=== PATIENT | male | born 1940 | race Caucasian/White ===

== ENCOUNTER 2019-02-18 08:43 | Day surgery (SDC) | payer MEDICARE, BC ==
[~2019-02-18] VITALS: Ht 175.3 cm; Wt 86.9 kg
[~2019-02-18 08:43] MED LIST: AMLO5 PO; Azopt10 ML; Azopt10 ML BOTHEYES; Bystolic20 MG PO; CARV25 PO; DABI150C PO; ENTRESTO 97 MG1 EACH PO; ESOM20 PO; GAVILAX17 GM PO; LOSA25 PO; LOVA20 PO; METO25ER PO; MONT10T PO; OMEG1CAP30; Ocuvite Lutein1 EACH PO; Ocuvite Softge1 EAC1 PO; PANT40 PO; PROTONIX; SENN187 PO; SPIR25 PO; TORSE20 PO
--- NOTE | 2019-02-18 10:49 | NUR ---
02/18/19 1048 Toshia Mccain RN NOTIFIED DR RYAN OF PT'S BP AT 1030. NO INTERVENTIONS ORDERED AT THIS TIME. FLUIDS ARE RUNNING, PT IS AWAKE AND DENIES NAUSEA AND PAIN. PT IS TOLERATING PO FLUIDS AND SNACKS WELL.
== END 2019-02-18 11:07 | disposition home or self-care (01) ==
LOC: ORSCSDS 08:43
PROVIDERS: Surgery
PROC: 0DBP8ZX Excision of Rectum, Via Natural or Artificial Opening Endoscopic, Diagnostic (ICD-10-PCS; principal; 2019-02-18 10:00)
DX: Z12.11 Encounter for screening for malignant neoplasm of colon (principal); Z86.010 Personal history of colon polyps; K62.1 Rectal polyp; G47.33 Obstructive sleep apnea (adult) (pediatric); I42.0 Dilated cardiomyopathy; I25.10 Atherosclerotic heart disease of native coronary artery without angina pectoris; I10 Essential (primary) hypertension; Z87.891 Personal history of nicotine dependence; Z79.899 Other long term (current) drug therapy
CPT/HCPCS: 88305; J2704; J7120

== ENCOUNTER → 2023-11-04 | Outpatient (CLI) | payer MEDICARE, BC ==
[~2023-11-04] MED LIST changes: +Amiodarone HCl200 MG PO; +XARELTO20 MG PO
[2023-11-04 11:52] LABS: Albumin, Blood 3.6 g/dL (3.4-5.0); Albumin/Globulin Ratio 0.7 (0.8-1.8); Bilirubin, Total 0.7 mg/dL (0.1-1.0); Bun/Creatinine Ratio 21.6 (12.0-20.0); Calcium, Blood 8.8 mg/dL (8.5-10.1); Creatinine, Blood 1.76 mg/dL (0.60-1.20); Globulin, Blood 5.2 g/dL (2.2-4.0); Potassium, Blood 4.6 mmol/L (3.5-5.5); Total Protein, Blood 8.8 g/dL (6.4-8.2)
[2023-11-04 11:53] LABS: BASOPHILS ABSOLUTE AUTO 0.01 K/mm3 (0.00-0.23); BASOPHILS PERCENT AUTO 0 % (0-2); EOSINOPHILS ABSOLUTE AUTO 0.01 K/mm3 (0.00-0.68); EOSINOPHILS PERCENT AUTO 0 % (0-6); Hemoglobin 17.6 g/dL (13.5-17.5); IMMATURE GRAN ABSOLUTE AUTO 0.03 K/mm3 (0.00-0.10); IMMATURE GRAN PERCENT AUTO 1 % (0-1); LYMPHOCYTES ABSOLUTE AUTO 0.71 K/mm3 (0.84-5.20); LYMPHOCYTES PERCENT AUTO 13 % (21-46); MONOCYTES ABSOLUTE AUTO 0.75 K/mm3 (0.16-1.47); MONOCYTES PERCENT AUTO 14 % (4-13); Mean Corpuscular HGB 31.5 pg (26.0-34.0); Mean Corpuscular HGB Conc 33.2 g/dL (31.5-36.5); Mean Corpuscular Volume 95 fL (80-100); NEUTROPHILS ABSOLUTE AUTO 3.82 K/mm3 (1.96-9.15); NEUTROPHILS PERCENT AUTO 72 % (41-73); RDW Coefficient Variation 13.5 % (11.7-14.2); RDW Standard Deviation 47.4 fL (35.1-46.3); Red Blood Cell Count 5.59 M/mm3 (4.30-5.90); White Blood Cell Count 5.33 K/mm3 (4.00-11.30)
[2023-11-04 12:05] LABS: Mean Platelet Volume 10.8 fL (9.1-12.4)
[2023-11-04 12:08] LABS: Platelet Count 133 K/mm3 (150-400)
== END ==
LOC: LAB 11:32 → LAB SHORT 11:32
PROVIDERS: Physician Assistant
DX: R31.9 Hematuria, unspecified (principal)
CPT/HCPCS: 80053; 85025; 87086

== ENCOUNTER 2023-11-08 03:37 | Inpatient (IN) | payer MEDICARE, BC ==
[~2023-11-08] VITALS: Ht 175.3 cm; Wt 82.6 kg
[2023-11-08] VITALS (11 sets, daily range): BP systolic 77–99; BP diastolic 53–79
[2023-11-08 04:12] LABS: BASOPHILS ABSOLUTE AUTO 0.02 K/mm3 (0.00-0.23); BASOPHILS PERCENT AUTO 0 % (0-2); EOSINOPHILS ABSOLUTE AUTO 0.18 K/mm3 (0.00-0.68); EOSINOPHILS PERCENT AUTO 3 % (0-6); Hematocrit 54.1 % (37.0-53.0); Hemoglobin 18.4 g/dL (13.5-17.5); IMMATURE GRAN ABSOLUTE AUTO 0.06 K/mm3 (0.00-0.10); IMMATURE GRAN PERCENT AUTO 1 % (0-1); LYMPHOCYTES ABSOLUTE AUTO 0.64 K/mm3 (0.84-5.20); LYMPHOCYTES PERCENT AUTO 11 % (21-46); MONOCYTES ABSOLUTE AUTO 0.79 K/mm3 (0.16-1.47); MONOCYTES PERCENT AUTO 13 % (4-13); Mean Corpuscular HGB 31.1 pg (26.0-34.0); Mean Corpuscular Volume 91 fL (80-100); Mean Platelet Volume 11.3 fL (9.1-12.4); NEUTROPHILS ABSOLUTE AUTO 4.37 K/mm3 (1.96-9.15); NEUTROPHILS PERCENT AUTO 72 % (41-73); Platelet Count 166 K/mm3 (150-400); RDW Coefficient Variation 13.5 % (11.7-14.2); RDW Standard Deviation 46.2 fL (35.1-46.3); Red Blood Cell Count 5.92 M/mm3 (4.30-5.90); White Blood Cell Count 6.06 K/mm3 (4.00-11.30)
[2023-11-08] MEDS ORDERED: NS 1,000 ML IV SCH ×5 (04:20→21:00)
[2023-11-08 04:33] LABS: Albumin, Blood 3.4 g/dL (3.4-5.0); Albumin/Globulin Ratio 0.7 (0.8-1.8); Bilirubin, Total 0.6 mg/dL (0.1-1.0); Calcium, Blood 8.4 mg/dL (8.5-10.1); Creatinine, Blood 2.22 mg/dL (0.60-1.20); Potassium, Blood 4.8 mmol/L (3.5-5.5); Total Protein, Blood 8.4 g/dL (6.4-8.2)
[2023-11-08 05:20] LABS: Influenza A, PCR NEGATIVE (NEGATIVE); Influenza B, PCR NEGATIVE (NEGATIVE); Resp Syncytial Virus, PCR NEGATIVE (NEGATIVE)
[2023-11-08] MEDS ORDERED: CefTRIAXone Sodium 1,000 MG in NS 100 ML IV ONE (05:20)
[2023-11-08] MEDS ORDERED: Azithromycin 500 MG in NS 250 ML IV ONE (05:20)
[2023-11-08 05:37] LABS: SARS-Cov-2 (COVID-19) PCR, MMC POSITIVE (NEGATIVE)
[2023-11-08] MEDS ORDERED: Dexamethasone Sod Phos 10 MG/ML 1ML VIAL IV ONE (05:45)
[2023-11-08 06:12] LABS: Source, Urine Foley catheter
[2023-11-08 06:14] LABS: Appearance, Urine Clear (Clear); Bilirubin, Urine Neg (Neg); Blood, Urine 3+ (Neg); Color, Urine Yellow (P-Yellow); Glucose Qualitative, Urine Neg (Neg); Ketones, Urine 1+ (Neg); Leukocyte Esterase, Urine Neg (Neg); Nitrite, Urine Neg (Neg); Protein, Urine 2+ (Neg); Specific Gravity, Urine 1.025 (1.003-1.022); Urobilinogen, Urine NORM (Normal)
[2023-11-08 06:20] LABS: Amorphous Light (0-Heavy); Bacteria Rare /hpf; Granular Casts 0-2 /lpf (0); Squamous Epithelial Cells Rare /hpf (Few); White Blood Cells, Urine 0-2 /hpf (0-5)
[2023-11-08] MEDS ORDERED: Metoprolol Succinate 50 MG TABCR PO SCH (09:00)
[2023-11-08] MEDS ORDERED: Rivaroxaban 10 MG Tab PO SCH (09:00)
[2023-11-08] MEDS ORDERED: Ipratropium/Albuterol SulF 2.5-0.5MG/3 ML Amp INH PRN (12:30)
--- NOTE | 2023-11-08 18:53 | NUR ---
PT ADMITTED TO PCU 12 ABOUT 1835 VS STABLE AT THIS TIME. HE REMAINS ON RA W/ SP02 >90%. BP IS BEING MONITORED Q30MIN D/T HYPOTENSION. THE PT WAS ABLE TO ANSWER ALL QUESTIONS APPROPRAITELY, AND IS ORIENTEDX4. HE DENIES SOB AT REST, BUT HAS SOB W/ EXCERTION. THE PT STATED HE HAS BEEN HAVING SOB FOR "QUITE AWHILE". ALSO, THE PT STATES THAT HE HAS BEEN HAVING ISSUES URINATING FOR A FEW WEEKS. HE WAS STRAIGHT CATH'D TWICE IN THE ER. WE WILL BLADDER SCAN THE PT AROUND 1999 IF HE IS UNABLE TO VOID. HE WAS SETTLED INTO BED, CALL LIGHT IN REACH, BED IN LOW, AND BED ALARM ON. REPORT TO BE GIVEN TO NIGHT RN.
[2023-11-08 22:23] LABS: Source, Urine Foley catheter
[2023-11-08 22:34] LABS: Bilirubin, Urine Neg (Neg); Blood, Urine 3+ (Neg); Glucose Qualitative, Urine Neg (Neg); Ketones, Urine 1+ (Neg); Leukocyte Esterase, Urine Neg (Neg); Nitrite, Urine Neg (Neg); Protein, Urine 2+ (Neg); Urobilinogen, Urine NORM (Normal)
[2023-11-08 22:45] LABS: Color, Urine Yellow (P-Yellow)
[2023-11-08 22:46] LABS: Appearance, Urine Clear (Clear)
[2023-11-08 22:47] LABS: Amorphous Light (0-Heavy); Bacteria Not Seen /hpf; Squamous Epithelial Cells Not Seen /hpf (Few); White Blood Cells, Urine 0-2 /hpf (0-5)
[2023-11-09] VITALS (18 sets, daily range): BP systolic 81–116; BP diastolic 62–80
[2023-11-09 04:04] LABS: BASOPHILS ABSOLUTE AUTO 0.01 K/mm3 (0.00-0.23); BASOPHILS PERCENT AUTO 0 % (0-2); EOSINOPHILS PERCENT AUTO 0 % (0-6); Hematocrit 50.8 % (37.0-53.0); IMMATURE GRAN ABSOLUTE AUTO 0.04 K/mm3 (0.00-0.10); IMMATURE GRAN PERCENT AUTO 1 % (0-1); LYMPHOCYTES ABSOLUTE AUTO 0.65 K/mm3 (0.84-5.20); LYMPHOCYTES PERCENT AUTO 12 % (21-46); MONOCYTES ABSOLUTE AUTO 0.79 K/mm3 (0.16-1.47); MONOCYTES PERCENT AUTO 14 % (4-13); Mean Corpuscular HGB Conc 33.5 g/dL (31.5-36.5); Mean Corpuscular Volume 93 fL (80-100); Mean Platelet Volume 11.3 fL (9.1-12.4); NEUTROPHILS ABSOLUTE AUTO 4.06 K/mm3 (1.96-9.15); NEUTROPHILS PERCENT AUTO 73 % (41-73); Platelet Count 158 K/mm3 (150-400); RDW Coefficient Variation 13.7 % (11.7-14.2); RDW Standard Deviation 46.9 fL (35.1-46.3); Red Blood Cell Count 5.49 M/mm3 (4.30-5.90); White Blood Cell Count 5.55 K/mm3 (4.00-11.30)
[2023-11-09 04:30] LABS: Albumin, Blood 2.7 g/dL (3.4-5.0); Albumin/Globulin Ratio 0.6 (0.8-1.8); Bilirubin, Total 0.4 mg/dL (0.1-1.0); Bun/Creatinine Ratio 42.1 (12.0-20.0); Calcium, Blood 7.9 mg/dL (8.5-10.1); Creatinine, Blood 1.26 mg/dL (0.60-1.20); Globulin, Blood 4.2 g/dL (2.2-4.0); Potassium, Blood 5.3 mmol/L (3.5-5.5); Total Protein, Blood 6.9 g/dL (6.4-8.2)
[2023-11-09] MEDS ORDERED: CefTRIAXone Sodium 1,000 MG in NS 100 ML IV SCH (06:00)
[2023-11-09] MEDS ORDERED: Azithromycin 500 MG in NS 250 ML IV SCH (06:00)
--- NOTE | 2023-11-09 06:17 | NUR ---
SHIFT SUMMARY ASSUMED CARE OF PATIENT AT 1900. PATIENT ADMITTED FOR COVID PNEUMONIA. ALERT AND ORIENTED THROUGHOUT THE SHIFT. INTERMITTENTLY CONFUSED DURING SLEEPING HOURS. BED ALARM UTILIZED. PATIENT USES CALL LIGHT APPROPRIATELY, ABLE TO EXPRESS NEEDS. 2-3L O2, DESATTING TO 80'S ON RA. CPAP @ HS, TOLERATED WELL. NO COUGH. PATIENT DENIES SHORTNESS OF BREATH, CHEST PAIN/PRESSURE. AFIB ON TELE. SOFT BP'S, IVF ORDERED OVERNIGHT. BP REMAINS SOFT BUT STABLE. MAP > 65. IVF ABX ON BOARD, TOLERATING WELL. NO IV SITE COMPLICATIONS. RETAINING APPROX. 500ML OF URINE OVERNIGHT, SIFUENTES INSERTED, PATIENT TOLERATED WELL, MINIMAL DISCOMFORT. URINE SAMPLE SENT TO LAB FOR CULTURE. NO OTHER SIGNIFICANT EVENTS OVERNIGHT.
[2023-11-09] MEDS ORDERED: Dexamethasone Sodium Phosphate 4 MG/ML 1ML Vial IV SCH (09:00)
--- NOTE | 2023-11-09 16:58 | NUR ---
SHIFT SUMMARY PT REMAINS ALERT AND ORIENTED. BP STABLE. HR REMAINS AFIB BBB 110'S. 02 SATS REMAIN ABOVE 90% ON 3L NC. PT DENIES ANY SOB. PT DENIES ANY PAIN. SIFUENTES PATENT AND DRAINING CLEAR YELLOW URINE. PT ABLE TO REPOSITION HIMSELF IN THE BED WITH MINIMAL ASSISTANCE. WILL CONTINUE TO MONITOR AND REPORT TO ONCOMING RN
[2023-11-10] MEDS ORDERED: QUEtiapine Fumarate 25 MG Tab PO ONE (02:00)
[2023-11-10 05:20] LABS: BASOPHILS ABSOLUTE AUTO 0.01 K/mm3 (0.00-0.23); BASOPHILS PERCENT AUTO 0 % (0-2); EOSINOPHILS PERCENT AUTO 0 % (0-6); Hematocrit 49.9 % (37.0-53.0); Hemoglobin 16.8 g/dL (13.5-17.5); IMMATURE GRAN ABSOLUTE AUTO 0.04 K/mm3 (0.00-0.10); IMMATURE GRAN PERCENT AUTO 1 % (0-1); LYMPHOCYTES ABSOLUTE AUTO 0.55 K/mm3 (0.84-5.20); LYMPHOCYTES PERCENT AUTO 8 % (21-46); MONOCYTES ABSOLUTE AUTO 0.82 K/mm3 (0.16-1.47); MONOCYTES PERCENT AUTO 12 % (4-13); Mean Corpuscular HGB 30.9 pg (26.0-34.0); Mean Corpuscular HGB Conc 33.7 g/dL (31.5-36.5); Mean Corpuscular Volume 92 fL (80-100); Mean Platelet Volume 11.1 fL (9.1-12.4); NEUTROPHILS ABSOLUTE AUTO 5.24 K/mm3 (1.96-9.15); NEUTROPHILS PERCENT AUTO 79 % (41-73); Platelet Count 184 K/mm3 (150-400); RDW Coefficient Variation 13.8 % (11.7-14.2); RDW Standard Deviation 47.1 fL (35.1-46.3); Red Blood Cell Count 5.43 M/mm3 (4.30-5.90); White Blood Cell Count 6.66 K/mm3 (4.00-11.30)
[2023-11-10 05:39] VITALS: BP 97/56
[2023-11-10 05:59] LABS: Albumin, Blood 2.7 g/dL (3.4-5.0); Albumin/Globulin Ratio 0.6 (0.8-1.8); Bilirubin, Total 0.6 mg/dL (0.1-1.0); Bun/Creatinine Ratio 32.4 (12.0-20.0); Calcium, Blood 7.8 mg/dL (8.5-10.1); Creatinine, Blood 1.02 mg/dL (0.60-1.20); Globulin, Blood 4.3 g/dL (2.2-4.0); Potassium, Blood 4.8 mmol/L (3.5-5.5)
--- NOTE | 2023-11-10 06:06 | NUR ---
SHIFT SUMMARY PATIENT CONFUSED, APPEARS TO SUNDOWN AT NIGHT WITH INCREASED LEVELS OF ACTIVITY, FIDGETING, PULLING OUT IVS AND MONITORING DEVICES FREQUENTLY. IMPULSIVE. BED ALRM UTILIZED. NOTIFIED MD OVERNIGHT, ONE TIME DOSE OF SEROQUEL GIVEN. PATIENT SEEMS A BIT CALMER BUT DID NOT APPEAR TO SLEEP AT ALL TONIGHT. O2 DEMAND INCREASED FROM 2L TO 5L, DIFFICULTY OBTAINING ADEQUATE O2 READING VIA PULSE OXIMETRY. DRY COUGH PERSISTS. AFIB WITH INCREASED HEART RATE OVERNIGHT. 120'S - 150'S NONSUSTAINED. BP STABLE. SIFUENTES CATH IN PLACE, CATH CARE COMPLETED PER CAUTI PREVENTION PROTOCOL. NO OTHER ACUTE EVENTS OVERNIGHT.
[2023-11-10] MEDS ORDERED: Rivaroxaban 10 MG Tab PO SCH (09:00)
[2023-11-10 09:23] VITALS: BP 123/107
--- NOTE | 2023-11-10 09:24 | NUR ---
INITIAL ASSESSMENT PATIENT ALERT AND ORIENTED TO SELF, PLACE AND PERSON. PATIENT DISORIENTED TO DATE OR WHY HE IS IN HOSPITAL. PATIET PILOT STATION. PATIENT ABLE TO FOLLOW COMMANDS SHORT TERM BUT HAS TO BE REORIENTED FREQUENTLY. PATIENT CAN BE IMPULSIVE AT TIMES; BED ALARM ON. PATIENT WEAK BUT ABLE TO MOVE ALL EXTREMITIES. PATIENT HAS TEMP OF 99.1 DEGREES FAHRENHEIT. LUNGS DIM AND COARSE. PATIENT INCREASED TO 6 L NC TO KEEP SATS 90% AND GREATER. NO COUGH NOTED THIS AM. SOCK LINING EXAMINER RN REPORTED COUGH WORSENED OVER NIGHT. SOCK LINING EXAMINER RN REPORTED THAT PATIENT IS SUPPOSED TO WEAR CPAP AT [facility] BUT REFUSED. PATIENT IN A. FIB WITH BBB, HR 120S TO 140S. SBP IN THE 120S. GI WNL. SIFUENTES IN PLACE FOR RETENTION DRAINING YELLOW COLORED URINE. BOTTOM RED. PATIENT TURNING SELF IN BED. SKIN PALE AND COOL. BED LOW, CALL LIGHT IN REACH. BED ALARM ON. CARE CONTINUES.
[2023-11-10] MEDS ORDERED: Lactated Ringer's 500 ML IV SCH (10:25)
[2023-11-10 12:15] VITALS: BP 107/63
--- NOTE | 2023-11-10 12:15 | NUR ---
PATIENT HAS TEMP OF 99.3 DEGREES FAHRENHEIT. HR IN THE 120S. SBP IN THE LOW 100S. POOR APPETITE. PATIENT MORE CONFUSED AND AGITATED THAN THIS AM. CARE CONTINUES.
--- NOTE | 2023-11-10 14:13 | NUR ---
DR. MASTERSON CALLED AND INFORMED THAT PATIENT HAS BECOME QUITE AGITATED AND GETTING FRUSTRATED WITH STAFF FOR TRYING TO ORIENT HIM AND TELLING HIM HE IS IN THE HOSPITAL. INFORMED THAT PATIENT MORE CONFUSED THAN THIS AM. INFORMED THAT PATIENT REFUSED CPAP LAST NIGHT PER NIGHT RN REPORT. INFORMED THAT HR 120S TO 140S. INFORMED THAT CHARGE NURSE TRYING TO GET SITTER TO HELP WITH PATIENT PATIENT CONTINUES TO PULL LINES, CORDS, SIFUENTES, IVS OUT, ETC. DR STATED SHE WILL PUT SOME ORDERS IN.
[2023-11-10 14:47] LABS: Base Excess Venous -2.5 mmol/L; Bicarbonate Venous 21.1 mmol/L (24.0-30.0); PCO2 Venous 43.6 mmHg (38-42); pH Blood Venous 7.34 (7.34-7.37)
[2023-11-10] MEDS ORDERED: CefTRIAXone Sodium 1,000 MG in NS 100 ML IV SCH (15:00)
[2023-11-10 16:59] VITALS: BP 115/76
[2023-11-10 17:00] VITALS: BP 115/76
--- NOTE | 2023-11-10 17:00 | NUR ---
PATIENT AFEBRILE. HR IN THE LOW 100S. SBP IN THE 1-TEENS. PATIENT HAS HACKING, NONPRODUCTIVE COUGH. PATIENT LESS AGITATED THAN AT NOON BUT CONTINUES TO PICK AT LINES AND CORDS. CARE CONTINUES.
--- NOTE | 2023-11-10 18:33 | NUR ---
SHIFT SUMMARY PATIENT REMAINED CONFUSED THIS SHIFT WITH PERIOD OF AGITATION AFTERNOON. PATIENT REMAINS AUGUSTINE. PATIENT MORE TIRED AND DID NOT ON AND OFF THIS AFTERNOON. PATIENT ABLE TO FOLLOW SIMPLE COMMANDS BUT DOES NOT LAST LONG AND NEEDS FREQUENT REMINDERS. SITTER AT BEDSIDE NOW PATIENT CONTINUED TO PICK AT LINES/ CORDS, TAKE OFF GOWN, PULL AT SIFUENTES AND IV. LUNGS REMAINED DIM/ COARSE. PATIENT REMAINED ON 6 L NC TO KEEP SATS 90% AND GREATER. PATIENT ORTIZ A LITTLE COUGHING THIS AFTERNOON THAT WAS HACKING AND NONPRODUCTIVE. PATIENT REMAINED IN A. FIB WITH BBB, HR LOW 100S TO 140S. SBP LOW 100S TO 120S. PATIENT GIVEN 500 NS BOLUS THIS SHIFT AND DID HELP DECREASE HR. PATIENT HAD POOR APPETITE. PATIENT DID DRINK SOME FLUID BUT DIDN'T WANT TO EAT ANY FOOD. SIFUENTES DRAINED 650 MLS OF YELLOW URINE THIS SHIFT. NO CHANGES TO SKIN NOTED. PATIENT HAD COMPLETE BED BATH. VBG PERFORMED THIS SHIFT. ROCEPHIN ORDERED AND STARTED THIS SHIFT. PATIENT'S AND DAUGHTER HERE TO SEE HIM TODAY. BED LOW, CALL LIGHT IN REACH. REPORT WILL BE GIVEN TO ASSUMING ASSISTANT BRAND MANAGER NURSE SHORTLY.
--- NOTE | 2023-11-10 22:21 | NUR ---
ASSUMED CARE AT 1900 PATIENT IN BED WATCHING TV. A&OX4. LUNGS DIMINSHED LOWER LOBES, HR IN THE 110'S AND SPB 140'S, SIFUENTES PATENT AND DRAINING TO GRAVITY. SITTER IN ROOM 1:1. CALL LIGHT WITHIN REACH.
[2023-11-10 23:13] VITALS: BP 131/94
[2023-11-11] VITALS (10 sets, daily range): BP systolic 98–134; BP diastolic 68–113
[2023-11-11] MEDS ORDERED: Acetaminophen 160MG / 5ML 10.15 UDC PO PRN (04:00)
[2023-11-11 04:12] LABS: BASOPHILS ABSOLUTE AUTO 0.01 K/mm3 (0.00-0.23); BASOPHILS PERCENT AUTO 0 % (0-2); EOSINOPHILS PERCENT AUTO 0 % (0-6); Hematocrit 49.2 % (37.0-53.0); Hemoglobin 16.4 g/dL (13.5-17.5); IMMATURE GRAN ABSOLUTE AUTO 0.04 K/mm3 (0.00-0.10); IMMATURE GRAN PERCENT AUTO 1 % (0-1); LYMPHOCYTES ABSOLUTE AUTO 0.55 K/mm3 (0.84-5.20); LYMPHOCYTES PERCENT AUTO 7 % (21-46); MONOCYTES ABSOLUTE AUTO 0.76 K/mm3 (0.16-1.47); MONOCYTES PERCENT AUTO 9 % (4-13); Mean Corpuscular HGB 30.9 pg (26.0-34.0); Mean Corpuscular HGB Conc 33.3 g/dL (31.5-36.5); Mean Corpuscular Volume 93 fL (80-100); NEUTROPHILS ABSOLUTE AUTO 6.91 K/mm3 (1.96-9.15); NEUTROPHILS PERCENT AUTO 84 % (41-73); Platelet Count 216 K/mm3 (150-400); RDW Coefficient Variation 13.7 % (11.7-14.2); RDW Standard Deviation 46.7 fL (35.1-46.3); White Blood Cell Count 8.27 K/mm3 (4.00-11.30)
[2023-11-11 04:29] LABS: Albumin, Blood 2.7 g/dL (3.4-5.0); Albumin/Globulin Ratio 0.6 (0.8-1.8); Bilirubin, Total 0.8 mg/dL (0.1-1.0); Bun/Creatinine Ratio 27.6 (12.0-20.0); Calcium, Blood 8.3 mg/dL (8.5-10.1); Creatinine, Blood 1.05 mg/dL (0.60-1.20); Globulin, Blood 4.2 g/dL (2.2-4.0); Potassium, Blood 4.9 mmol/L (3.5-5.5); Total Protein, Blood 6.9 g/dL (6.4-8.2)
--- NOTE | 2023-11-11 04:42 | NUR ---
CALL TO MD- INCREASED HEART CALLED MD AT 0440 TO INFORM HIM OF INCREASED HR. ALSO INFORMED HIM OF A TEMP OF 101.9 AT 0400 GAVE TYLENOL PER ORDER BROUGHT MALACHI DOWN TO 99.0. PATIENT HR HAS INCREASED FROM THE 120'S TO 140-150'S DURING SPIKE IN TEMP AND AFTER. TOLD MD PATIENT WAS AGITATED TRYING TO PULL LINES AND WIRES OUT. MD AWARE TOLD NURSE TO WATCH HIM. NO NEW ORDERS AT THIS TIME
--- NOTE | 2023-11-11 05:16 | NUR ---
INCREASED HR, O2 REQUIREMENTS DR. COONEY NOTIFIED OF CONTINUED AFIB WITH RVR, RATE 130s-160s. ALSO NOTIFIED THAT PT IS NOW REQUIRING 10L NRB TO MAINTAIN O2 SATS >90%. STATES THAT HE WILL COME TO ROOM TO CHECK ON PATIENT.
[2023-11-11] MEDS ORDERED: Diltiazem HCl 5 MG / ML 5ML Vial IV ONE (05:50)
--- NOTE | 2023-11-11 06:20 | NUR ---
SHIFT SUMMARY PATIENT RESTED FIRST PART OF SHIFT. PATIENT BECAME RESTLESS AND AGITATED AND BEGAN RUNNING A TEMPERTURE OF 101.3. GAVE TYLENOL PER ORDER. PATIENT STILL AGITATED MD CAME UP AT 0540 AND ORDERED CARDIZEM 5MG. PATIENT HR WAS IN THE 140-160'S. AFTER MED HR IN 100-110'S, 0610 PATIENT STILL AWAKE, SBP 110'S. ON HIGH FLOW NC AT 12L SPO2 89-90. 0630 PATIENT SLEEPING FOR ABOUT 10 SOLID MINUTES. CALL LIGHT WITHIN REACH. SITTER 1:1 AND CAMERA IN ROOM.
[2023-11-11] MEDS ORDERED: Metoprolol Tartrate 1 MG/ML 5 ML VIAL IV PRN (07:10)
--- NOTE | 2023-11-11 07:32 | NUR ---
Pt is alert, oriented and pleasantly conversant. Ambulatory to the bathroom with geriwalker for toileting. Purewick removed.
[2023-11-11] MEDS ORDERED: NS 250 ML IV PRN (08:40)
[2023-11-12] VITALS (8 sets, daily range): BP systolic 94–111; BP diastolic 63–84
--- NOTE | 2023-11-12 06:01 | NUR ---
1915 Assumed care of pt, nadira report completed. Shift plan of care reviewed with pt, frequent reinforcement and reorientation needed. Pt with uneventful shift. Pt slept in spurts, awakens completely confused. Reorientation required frequently, though pt with signifcant short term memory loss making safely caaring for pt difficult. 1:1 sitter at bedside for line protection and to keep O2 cannula on face and O2 sat probe in place. Pt can often be verbally redirected, occaasionally requires assistance to keep lines and pt safe. Gave Metoprolol 5mg IVP x 2 for HR >120 while in bed. Pt continues in Atrial Fib, rate better controlled this AM, 90-110s. O2 requirement 6-9 lpm via high flow nasal cannula. Please see full assesment for additional details. No further complaints or concerns at this time, will continue to monitor.
[2023-11-12 07:34] LABS: BASOPHILS PERCENT AUTO 0 % (0-2); EOSINOPHILS PERCENT AUTO 0 % (0-6); Hematocrit 43.9 % (37.0-53.0); Hemoglobin 14.4 g/dL (13.5-17.5); IMMATURE GRAN ABSOLUTE AUTO 0.07 K/mm3 (0.00-0.10); IMMATURE GRAN PERCENT AUTO 1 % (0-1); LYMPHOCYTES ABSOLUTE AUTO 0.51 K/mm3 (0.84-5.20); LYMPHOCYTES PERCENT AUTO 7 % (21-46); MONOCYTES ABSOLUTE AUTO 0.68 K/mm3 (0.16-1.47); MONOCYTES PERCENT AUTO 10 % (4-13); Mean Corpuscular HGB 30.6 pg (26.0-34.0); Mean Corpuscular HGB Conc 32.8 g/dL (31.5-36.5); Mean Corpuscular Volume 93 fL (80-100); Mean Platelet Volume 10.6 fL (9.1-12.4); NEUTROPHILS ABSOLUTE AUTO 5.73 K/mm3 (1.96-9.15); NEUTROPHILS PERCENT AUTO 82 % (41-73); Platelet Count 166 K/mm3 (150-400); RDW Coefficient Variation 13.5 % (11.7-14.2); RDW Standard Deviation 46.4 fL (35.1-46.3); Red Blood Cell Count 4.71 M/mm3 (4.30-5.90); White Blood Cell Count 6.99 K/mm3 (4.00-11.30)
[2023-11-12 07:53] LABS: Albumin, Blood 2.1 g/dL (3.4-5.0); Albumin/Globulin Ratio 0.6 (0.8-1.8); Bilirubin, Total 0.7 mg/dL (0.1-1.0); Bun/Creatinine Ratio 29.6 (12.0-20.0); Calcium, Blood 7.7 mg/dL (8.5-10.1); Creatinine, Blood 1.08 mg/dL (0.60-1.20); Globulin, Blood 3.7 g/dL (2.2-4.0); Potassium, Blood 5.5 mmol/L (3.5-5.5); Total Protein, Blood 5.8 g/dL (6.4-8.2)
[2023-11-12] MEDS ORDERED: Furosemide 10 MG / ML 2ML Vial IV SCH (09:00)
--- NOTE | 2023-11-12 18:26 | NUR ---
SHIFT SUMMARY PT A/OX2, ABLE TO GIVE NAME AND KNOWS THAT HE IS AT THE HOSPITAL, UNABLE TO NAME THE HOSPITAL. PT WAS UP TO RECLINER FOR MOST OF SHIFT. PT O2 TITRATED FROM 7L NC TO 4L AT SHIFT CHANGE. AGAIN TITRATE TO 2L NC ABOUT AN HOUR LATER, SATS REMAINED HIGH 80'S, LOW 90'S. NO REPORT OF SOB. PT SATS DOWN TO MID 80'S A COUPLE OF TIMES REQUIRING NC TO BE INCREASED TO 3L FOR SHIFT STENT. PT HR CONTROLED IN THE 90-100'S, NO IV METOPROLOL REQUIRED. SIFUENTES REMAINED IN PLACE DRAINING TO GRAVITY.
--- NOTE | 2023-11-12 20:35 | NUR ---
ASSESSMENT/ASSUMED CARE PT RESTING QUIETLY. DENIES PAIN OR DISCOMFORT. A&O TO PLACE AND SELF. SITTER AT BEDSIDE. LUNGS CLEAR BUT DECREASED ON 3 LITERS HIGH FLOW NC. HEART RATE AFIB. TRACE PEDAL EDEMA. IV TO RIGHT FOREARM LEAKING, DC'D INTACT. POWER GLIDE TO RIGHT UPPER ARM FLUSHED WITHOUT DIFFICULTY. VSS. SIFUENTES CATH DRAINING YELLOW URINE. CATH CARE DONE
[2023-11-12] MEDS ORDERED: Lactobacil 2-S.Thermo-Bifido 1 1 Cap PO SCH (21:00)
--- NOTE | 2023-11-12 22:37 | NUR ---
TRANSFER PT TO TRANSFER TO MEDICAL FLOOR. REPORT CALLED TO MEDICAL FLOOR RN
[2023-11-13 04:20] VITALS: BP 110/97
[2023-11-13 05:42] LABS: Hematocrit 47.5 % (37.0-53.0); Hemoglobin 16.3 g/dL (13.5-17.5); Mean Corpuscular HGB 31.6 pg (26.0-34.0); Mean Corpuscular HGB Conc 34.3 g/dL (31.5-36.5); Mean Corpuscular Volume 92 fL (80-100); Mean Platelet Volume 10.9 fL (9.1-12.4); Platelet Count 215 K/mm3 (150-400); RDW Coefficient Variation 13.4 % (11.7-14.2); RDW Standard Deviation 45.4 fL (35.1-46.3); Red Blood Cell Count 5.16 M/mm3 (4.30-5.90); White Blood Cell Count 9.17 K/mm3 (4.00-11.30)
--- NOTE | 2023-11-13 06:19 | NUR ---
LATE ENTRY FOR 11/11/23 @ 0040: RECIEVED PATIENT FROM PCU VIA BED. PATIENT IS ORIENTED TO SELF, NO REPORTS OF PAIN OR DISCOMFORT, VSS, SIFUENTES IS DRIANING A CLEAR YELLOW URINE. CONTINUOS PULSE OX IS IN PLACE. PATIENT IS ORIENTED TO THE ROOM AND CALL DYER. BED ALARM IS ON FOR SAFETY.
[2023-11-13 06:20] LABS: BAND PERCENT MAN 4 % (0-8); BASOPHILS PERCENT MAN 0 % (0-2); EOSINOPHILS PERCENT MAN 0 % (0-6); LYMPHOCYTES % ATYPICAL MANUAL 1 % (0-0); LYMPHOCYTES ABSOLUTE MAN 0.27 K/mm3 (0.84-5.20); LYMPHOCYTES PERCENT MAN 2 % (21-46); METAMYELOCYTE ABSOLUTE MAN 0.09 K/mm3 (0.00-0.00); METAMYELOCYTE PERCENT MAN 1 % (0-0); MONOCYTES ABSOLUTE MAN 1.28 K/mm3 (0.16-1.47); MONOCYTES PERCENT MAN 14 % (4-13); NEUTROPHILS ABSOLUTE MAN 7.51 K/mm3 (1.96-9.15); SEG NEUTROPHILS PERCENT MAN 78 % (41-73); TOTAL CELLS COUNTED 100
--- NOTE | 2023-11-13 06:28 | NUR ---
SHIFT SUMMARY: PATIENT REPEATEDLY PULLED OFF TELI LEADS. DR GREY WAS CALLED AND TELI WAS DC'D. SITTER WAS SENT HOME. PATIENT WAS ON 3L BUT WAS UNABLE TO MAINTAIN STATS WHILE SLEEPING. CPAP WAS ATTEMPTED WITH A 3L BLEED IN. PATIENT WAS UNABLE TO TOLERATE. HIGH FLOW NC WAS THEN PLACED WITH 02 AT 7L. WHEN SATS STABLIZED 02 WAS TURNED DOWN TO 5L, PATIENT IS ABLE TO MAINTAIN SATS ABOVE 90% ON 5L DURING SLEEP.
[2023-11-13 06:33] LABS: Albumin, Blood 2.4 g/dL (3.4-5.0); Albumin/Globulin Ratio 0.6 (0.8-1.8); Bilirubin, Total 0.7 mg/dL (0.1-1.0); Bun/Creatinine Ratio 37.7 (12.0-20.0); Calcium, Blood 8.2 mg/dL (8.5-10.1); Creatinine, Blood 1.06 mg/dL (0.60-1.20); Globulin, Blood 4.2 g/dL (2.2-4.0); Potassium, Blood 4.6 mmol/L (3.5-5.5); Total Protein, Blood 6.6 g/dL (6.4-8.2)
[2023-11-13 07:54] VITALS: BP 115/83
[2023-11-13 15:18] VITALS: BP 109/68
--- NOTE | 2023-11-13 17:16 | NUR ---
NO ACUTE CHANGES, WITHDRAWN, COOPERATIVE BUT EASILY CONFUSED, PULLED AT SIFUENTES AFEW TIMES BUT HAS STOPPED, FAMILY VISITED, VERY EMCOURAGING FOR PATIENT, BEAR D/C, PT/OT WORKED WITH PATIENT, CONTINUOUS PULSE OX ON, CALL LIGHT WITH IN REACH, WILL RELAY TO PM RN
[2023-11-13 19:26] VITALS: BP 89/75
[2023-11-13 19:56] VITALS: BP 108/69
[2023-11-14 04:02] VITALS: BP 107/84
--- NOTE | 2023-11-14 05:28 | NUR ---
SHIFT SUMMARY: PATIENT IS MORE ALERT TONIGHT THAN THE PREVIOUS NIGHT. VSS, MAINTAINING SATS IN MID 90'S ON 6L NC. PATIENT HAS A LOOSE NONPRODUCTIVE COUGH.
[2023-11-14 07:54] VITALS: BP 102/76
[2023-11-14 15:40] VITALS: BP 123/81
--- NOTE | 2023-11-14 17:23 | NUR ---
NO ACUTE CHANGES, URINE RETENTION, IF BLADDER SCAN SHOWS MORE THAN 550 PATIENT TO BE STRAIGHT CATHED, STRAIGHT CATHED X1 TODAY, 500 ML OUT, CLEAR YELLOW URINE. VISITED, IV MEDICATIONS SWITCHED TO PO, PT WORKED WITH PATIENT TODAY. ALERT ALL DAY, ONLY ORIENTED TO SELF AND FAMILY, BED ALARM ON, NO SWALLOWING DIFFICULTY, CALL LIGHT WITH IN REACH, WILL RELAY TO PM RN
[2023-11-14] MEDS ORDERED: Melatonin 5 MG Tablet PO ONE (19:55)
[2023-11-14 20:26] VITALS: BP 117/94
[2023-11-15 04:31] VITALS: BP 118/84
[2023-11-15 06:08] LABS: Hematocrit 47.7 % (37.0-53.0); Hemoglobin 16.1 g/dL (13.5-17.5); Mean Corpuscular HGB 30.9 pg (26.0-34.0); Mean Corpuscular HGB Conc 33.8 g/dL (31.5-36.5); Mean Corpuscular Volume 92 fL (80-100); Mean Platelet Volume 10.1 fL (9.1-12.4); Platelet Count 229 K/mm3 (150-400); RDW Coefficient Variation 13.2 % (11.7-14.2); RDW Standard Deviation 44.6 fL (35.1-46.3); Red Blood Cell Count 5.21 M/mm3 (4.30-5.90); White Blood Cell Count 9.58 K/mm3 (4.00-11.30)
--- NOTE | 2023-11-15 06:13 | NUR ---
SHIFT SUMMARY: PATIENT WAS VERY RESTLESS AT START OF SHIFT. ON PA WAS NOTIFIED AND AN ORDER FOR MELATONIN WAS OBTAINE AND MED WAS GIVEN WITH GOOD EFFECT. PATIENT WAS UNABLE TO VOID AND WAS BLADDER SCANNED AND THEN STRAIGHTED FOR 525 MLS OF ALENA URINE. PATIENT TOLERATED PROCEEDURE WELL.
[2023-11-15 06:27] LABS: Albumin, Blood 2.5 g/dL (3.4-5.0); Albumin/Globulin Ratio 0.6 (0.8-1.8); Bilirubin, Total 0.7 mg/dL (0.1-1.0); Bun/Creatinine Ratio 42.5 (12.0-20.0); Calcium, Blood 8.2 mg/dL (8.5-10.1); Creatinine, Blood 0.99 mg/dL (0.60-1.20); Globulin, Blood 3.9 g/dL (2.2-4.0); Potassium, Blood 4.6 mmol/L (3.5-5.5); Total Protein, Blood 6.4 g/dL (6.4-8.2)
[2023-11-15 06:33] LABS: BASOPHILS PERCENT MAN 0 % (0-2); EOSINOPHILS PERCENT MAN 0 % (0-6); LYMPHOCYTES % ATYPICAL MANUAL 4 % (0-0); LYMPHOCYTES ABSOLUTE MAN 0.76 K/mm3 (0.84-5.20); LYMPHOCYTES PERCENT MAN 4 % (21-46); MONOCYTES ABSOLUTE MAN 1.14 K/mm3 (0.16-1.47); MONOCYTES PERCENT MAN 12 % (4-13); NEUTROPHILS ABSOLUTE MAN 7.66 K/mm3 (1.96-9.15); SEG NEUTROPHILS PERCENT MAN 80 % (41-73); TOTAL CELLS COUNTED 100
[2023-11-15] MEDS ORDERED: dexAMETHasone 4 MG TAB PO SCH (09:00)
[2023-11-15] MEDS ORDERED: Furosemide 40 MG Tab PO SCH (09:00)
--- NOTE | 2023-11-15 09:11 | NUR ---
FAMILY VISITING, ISOLATION PROTOCOL REVEIWED WITH DAUGTER AND , PATIENT SITTING UP IN BED AND INTERACTING WITH FAMILY
[2023-11-15] MEDS ORDERED: Ipratropium/Albuterol SulF 2.5-0.5MG/3 ML Amp INH SCH ×2 (14:30→18:13)
--- NOTE | 2023-11-15 14:34 | NUR ---
lasix discontinued, oxemetry stopped, flomax started, bladder scan at 1409 showed 300 ml, reported to maury, patient showered today, and daughter visited earlier, call light with in reach, bed alarm on
[2023-11-15 14:52] VITALS: BP 109/75
[2023-11-15] MEDS ORDERED: Tamsulosin HCl 0.4 MG Cap PO SCH (18:00)
--- NOTE | 2023-11-15 18:23 | NUR ---
NO ACUTE CHANGES, LASIX CHANGED TO FLOMAX, STRAIGHT CATHED X1 TODAY, PLEASANT TO CARE, POOR MEMORY AND CONFUSED EASILY, FAMILY VISITED TODAY. SEVERE EMPHHYSEMA, PATIENT IMPULSIVE TO GET OOB WHEN NEEDING TO VOID, LESS IMPULSIVENESS ONCE STRAIGHT CATH IS DONE. CALL LIGHT WITH IN REACH, BED ALARM ON, WILL RELAY TO PM RN
--- NOTE | 2023-11-15 18:45 | NUR ---
PATIENT REFUSING TO EAT FOOD, PATIENT REFUSING TO SAY WHAT FOODS HE LIKES, WILL RELAY TO PM RN
[2023-11-15 20:31] VITALS: BP 132/87
[2023-11-15] MEDS ORDERED: Melatonin 5 MG Tablet PO SCH (21:00)
[2023-11-15 22:33] LABS: Source, Urine Foley catheter
[2023-11-15 22:35] LABS: Bilirubin, Urine Neg (Neg); Blood, Urine 5+ (Neg); Glucose Qualitative, Urine Neg (Neg); Ketones, Urine 1+ (Neg); Leukocyte Esterase, Urine 1+ (Neg); Nitrite, Urine Neg (Neg); Protein, Urine 2+ (Neg); Urobilinogen, Urine NORM (Normal)
[2023-11-15 22:45] LABS: Appearance, Urine Hazy (Clear); Color, Urine Yellow (P-Yellow)
[2023-11-15 22:47] LABS: Bacteria Few /hpf; Red Blood Cells, Urine TNTC /hpf (0-2); Squamous Epithelial Cells Rare /hpf (Few); White Blood Cells, Urine 0-2 /hpf (0-5)
[2023-11-16 05:56] VITALS: BP 123/87
--- NOTE | 2023-11-16 06:31 | NUR ---
SHIFT SUMMARY: PATIENT REFUSED HS SNACK BUT DID DRINK A SMALL AMT. OF WATER AT TIMES WITH ENCORAGEMENT. PATIENT WAS RESTLESS AT START OF SHIFT SETTING OFF BED ALARM MULTIPLE TIMES. SAYING "I HAVE TO GO PEE". PATIENT WAS ASSISTED TO STAND AT THE BEDSIDE AND ATTEMPT URINATION BUT WAS UNABLE TO VOID. ALEXY PATINO WAS NOTIFIED. PATIENT HAS BEEN UNABLE TO VOID SINCE THE SIFUENTES WAS REMOVED AND WAS STRAIGHT CATHED X3. ORDER WAS OBTAINED TO PLACE A SIFUENTES CATHETER AND MELATONIN. CATHETER WAS PLACED, PATIENT TOLERATED PROCEEDURE WELL. MELATONIN WAS GIVEN. PATIENT SLEPT WELL THROUGH THE NIGHT, SIFUENTES REMAINS PATENT FOR AN ALENA URINE. BED ALARM IS ON FOR SAFETY.
[2023-11-16 07:37] VITALS: BP 128/77
[2023-11-16 15:56] VITALS: BP 132/80
--- NOTE | 2023-11-16 18:44 | NUR ---
VSS, A-O only to self, confused, impulive and redirectable, denies any pain, denies SOB, ambulates 1x assist with walker, on 4L NC. Lungs dimished, heart regular, bowels sounds normative, quintanilla in place draining clear yellow urine. Pt can make some needs known, call traylor in hand, bed alarm on at all times, bed in lowest position.
[2023-11-16 20:03] VITALS: BP 111/94
[2023-11-17 04:11] VITALS: BP 115/83
--- NOTE | 2023-11-17 06:33 | NUR ---
Shift Summary Pt AOx2, confusion and forgetfulness. He still has an occasional hacking cough, no fever or sore throat. Pt remained in bed t/o the shift. Alonso in place and patent draining tea colored urine. No c/o pain or nausea. On 5L O2 NC to maintane sat>90%. On biox which needs to be attached to his toe to get a decent signal. Faint/distant heart sounds. No acute changes.
[2023-11-17 07:26] VITALS: BP 126/87
[2023-11-17 08:14] LABS: BASOPHILS ABSOLUTE AUTO 0.02 K/mm3 (0.00-0.23); BASOPHILS PERCENT AUTO 0 % (0-2); EOSINOPHILS ABSOLUTE AUTO 0.03 K/mm3 (0.00-0.68); EOSINOPHILS PERCENT AUTO 0 % (0-6); Hematocrit 48.1 % (37.0-53.0); Hemoglobin 16.4 g/dL (13.5-17.5); IMMATURE GRAN PERCENT AUTO 1 % (0-1); LYMPHOCYTES ABSOLUTE AUTO 0.91 K/mm3 (0.84-5.20); LYMPHOCYTES PERCENT AUTO 8 % (21-46); MONOCYTES ABSOLUTE AUTO 0.84 K/mm3 (0.16-1.47); MONOCYTES PERCENT AUTO 8 % (4-13); Mean Corpuscular HGB 31.5 pg (26.0-34.0); Mean Corpuscular HGB Conc 34.1 g/dL (31.5-36.5); Mean Corpuscular Volume 92 fL (80-100); Mean Platelet Volume 9.8 fL (9.1-12.4); NEUTROPHILS ABSOLUTE AUTO 8.91 K/mm3 (1.96-9.15); NEUTROPHILS PERCENT AUTO 82 % (41-73); Platelet Count 238 K/mm3 (150-400); RDW Coefficient Variation 13.2 % (11.7-14.2); RDW Standard Deviation 44.1 fL (35.1-46.3); Red Blood Cell Count 5.21 M/mm3 (4.30-5.90); White Blood Cell Count 10.81 K/mm3 (4.00-11.30)
[2023-11-17 08:31] LABS: Albumin, Blood 2.6 g/dL (3.4-5.0); Albumin/Globulin Ratio 0.7 (0.8-1.8); Bilirubin, Total 1.3 mg/dL (0.1-1.0); Calcium, Blood 8.5 mg/dL (8.5-10.1); Creatinine, Blood 0.91 mg/dL (0.60-1.20); Globulin, Blood 3.8 g/dL (2.2-4.0); Potassium, Blood 4.4 mmol/L (3.5-5.5); Total Protein, Blood 6.4 g/dL (6.4-8.2)
--- NOTE | 2023-11-17 14:33 | NUR ---
VSS, A-Ox2 disoriented to time and situation, denies SOB, denies any pain, ambulates 1x assist and walker, on 3L NC. Lungs diminished, heart irregular, bowel sounds normalative, quintanilla in place draining clear yellow urine, eat 25% of meals. Pt can make some needs known, bed alarm on at all times, call traylor in hand, bed in lowest position.
[2023-11-17 15:04] VITALS: BP 109/65
[2023-11-17 19:35] VITALS: BP 125/82
[2023-11-17] MEDS ORDERED: Mirtazapine 15 MG SoluTab PO SCH (21:00)
[2023-11-18 04:40] VITALS: BP 111/71
--- NOTE | 2023-11-18 05:58 | NUR ---
Shift Summary Pt became more confused and impulsive late in the night, stripping off his clothes and trying to get out of bed a few times. He was redirectable back to bed. Alonso catheter in place and patent, small amounts of blood noted in drainage bag this AM. Pt on 3-5L O2 to maintane saturation greater than 90%.
[2023-11-18 07:21] VITALS: BP 120/78
[2023-11-18] MEDS ORDERED: TAMS.4ER PO (11:16)
[2023-11-18] MEDS ORDERED: MIRT15 PO (11:16)
--- NOTE | 2023-11-18 14:00 | NUR ---
DISCHARGE NOTE- PT DISCHARGED TO [facility]. SPOKE TO DR LUNA PRIOR TO PT DISCHARGE. PT TO DISCHARGE WITH THE SIFUENTES IN PLACE, PG DC'D PRIOR TO DISCHARGE. CALLED JYOTI AND WAS NOT ABLE TO GIVE REPORT AT THIS TIME. WILL ATTEMPT TO CALL AGAIN LATER.
== END 2023-11-18 13:20 | DRG 871 ==
LOC: ER 03:37 → PCU 07:41 → ERHOLD 07:41 → PCU 18:22 → MEDS 11-13 00:10 → ENPENDDIS 11-18 09:32 → MEDS 11-18 13:20
PROVIDERS: Emergency Medicine; Family Medicine; Family Medicine Adult Medicine; Internal Medicine; Nurse Practitioner Acute Care; ADMIT Internal Medicine
PROC: 3E0333Z Introduction of Anti-inflammatory into Peripheral Vein, Percutaneous Approach (ICD-10-PCS; principal; 2023-11-08)
PROC: 5A0935A Assistance with Respiratory Ventilation, Less than 24 Consecutive Hours, High Flow/Velocity Cannula (ICD-10-PCS; 2023-11-08)
PROC: 3E03329 Introduction of Other Anti-infective into Peripheral Vein, Percutaneous Approach (ICD-10-PCS; 2023-11-08)
PROC: 0T9B70Z Drainage of Bladder with Drainage Device, Via Natural or Artificial Opening (ICD-10-PCS; 2023-11-09)
PROC: 5A09357 Assistance with Respiratory Ventilation, Less than 24 Consecutive Hours, Continuous Positive Airway Pressure (ICD-10-PCS; 2023-11-09)
DX: A41.89 Other specified sepsis (principal); G92.8 Other toxic encephalopathy; J12.82 Pneumonia due to coronavirus disease 2019; J96.21 Acute and chronic respiratory failure with hypoxia; U07.1 COVID-19; I50.33 Acute on chronic diastolic (congestive) heart failure; N17.9 Acute kidney failure, unspecified; J44.0 Chronic obstructive pulmonary disease with (acute) lower respiratory infection; I13.0 Hypertensive heart and chronic kidney disease with heart failure and stage 1 through stage 4 chronic kidney disease, or unspecified chronic kidney disease; J44.1 Chronic obstructive pulmonary disease with (acute) exacerbation; I48.20 Chronic atrial fibrillation, unspecified; K59.00 Constipation, unspecified; N18.31 Chronic kidney disease, stage 3a; I95.9 Hypotension, unspecified; J43.9 Emphysema, unspecified; I27.20 Pulmonary hypertension, unspecified; R33.9 Retention of urine, unspecified; E86.0 Dehydration; M19.90 Unspecified osteoarthritis, unspecified site; E78.5 Hyperlipidemia, unspecified; G47.33 Obstructive sleep apnea (adult) (pediatric); Z85.038 Personal history of other malignant neoplasm of large intestine; Z85.46 Personal history of malignant neoplasm of prostate; Z79.01 Long term (current) use of anticoagulants; Z88.8 Allergy status to other drugs, medicaments and biological substances; Z79.899 Other long term (current) drug therapy; Z90.49 Acquired absence of other specified parts of digestive tract; Z98.890 Other specified postprocedural states; Z87.891 Personal history of nicotine dependence
CPT/HCPCS: 0241U; 36415; 51701; 51798; 71045; 71260; 74018; 80053; 81001; 82803; 83605; 83880; 85025; 87040; 94640; 94660; 94762; 96361-59; 96365-59; 96367-59; 96375-59; 97110; 97116; 97162; 97165; 97530; 97530-CQ; 97535; 99285-25; A9270; C1751; J0456; J0696; J1100; J1940; J7030; J7050; J7120; Q9967

== ENCOUNTER 2024-07-10 11:50 | Emergency (ER) | payer MEDICARE, BC ==
[~2024-07-10] VITALS: Ht 175.3 cm; Wt 74.8 kg
[~2024-07-10 11:50] MED LIST changes: +MIRT15 PO; +TAMS.4ER PO
[2024-07-10 12:44] LABS: BASOPHILS ABSOLUTE AUTO 0.05 K/mm3 (0.00-0.23); BASOPHILS PERCENT AUTO 0 % (0-2); EOSINOPHILS ABSOLUTE AUTO 0.02 K/mm3 (0.00-0.68); EOSINOPHILS PERCENT AUTO 0 % (0-6); Hematocrit 45.4 % (37.0-53.0); Hemoglobin 14.7 g/dL (13.5-17.5); IMMATURE GRAN ABSOLUTE AUTO 0.05 K/mm3 (0.00-0.10); IMMATURE GRAN PERCENT AUTO 0 % (0-1); LYMPHOCYTES ABSOLUTE AUTO 0.93 K/mm3 (0.84-5.20); LYMPHOCYTES PERCENT AUTO 6 % (21-46); MONOCYTES ABSOLUTE AUTO 1.15 K/mm3 (0.16-1.47); MONOCYTES PERCENT AUTO 8 % (4-13); Mean Corpuscular HGB Conc 32.4 g/dL (31.5-36.5); Mean Corpuscular Volume 99 fL (80-100); NEUTROPHILS ABSOLUTE AUTO 12.57 K/mm3 (1.96-9.15); NEUTROPHILS PERCENT AUTO 85 % (41-73); Platelet Count 210 K/mm3 (150-400); RDW Coefficient Variation 14.5 % (11.7-14.2); RDW Standard Deviation 52.7 fL (35.1-46.3); White Blood Cell Count 14.77 K/mm3 (4.00-11.30)
[2024-07-10] MEDS ORDERED: ANORO ELLIPTA1 EACH INH (12:46)
[2024-07-10] MEDS ORDERED: MAGCIT300 PO (12:47)
[2024-07-10 13:03] LABS: Albumin, Blood 3.2 g/dL (3.4-5.0); Albumin/Globulin Ratio 0.7 (0.8-1.8); Bilirubin, Total 1.3 mg/dL (0.1-1.0); Bun/Creatinine Ratio 22.1 (12.0-20.0); Calcium, Blood 8.8 mg/dL (8.5-10.1); Creatinine, Blood 1.31 mg/dL (0.60-1.20); Globulin, Blood 4.5 g/dL (2.2-4.0); Potassium, Blood 4.6 mmol/L (3.5-5.5); Total Protein, Blood 7.7 g/dL (6.4-8.2)
[2024-07-10 15:42] LABS: Influenza A, PCR NEGATIVE (NEGATIVE); Influenza B, PCR NEGATIVE (NEGATIVE); Resp Syncytial Virus, PCR NEGATIVE (NEGATIVE); SARS-Cov-2 (COVID-19) PCR, MMC NEGATIVE (NEGATIVE)
[2024-07-10 16:02] VITALS: BP 98/64
[2024-07-10] MEDS ORDERED: Albuterol HFA200 ACT/6.7 GM INH INH ONE (16:05)
[2024-07-10] MEDS ORDERED: Azithromycin 250 MG Tab PO ONE (16:05)
[2024-07-10] MEDS ORDERED: AZIT250 PO (16:07)
== END 2024-07-10 16:33 | disposition other institution (70) ==
LOC: ER 11:50
PROVIDERS: Emergency Medicine; Student in an Organized Health Care Education/Training Program
DX: J44.1 Chronic obstructive pulmonary disease with (acute) exacerbation (principal); J20.9 Acute bronchitis, unspecified; R04.2 Hemoptysis
CPT/HCPCS: 0241U; 71045; 80053; 84484; 85025; 93005; 93010; A9270